=== PATIENT | female | born 1990 | race Caucasian/White ===

== ENCOUNTER 2017-01-09 17:57 | Emergency (ER) | payer SELFPAY ==
[~2017-01-09] VITALS: Ht 165.1 cm; Wt 91.0 kg
[2017-01-09 18:08] VITALS: BP 146/104
== END 2017-01-10 | disposition left against medical advice (07) ==
LOC: ER 17:57
DX: R06.02 Shortness of breath (principal); Z53.21 Procedure and treatment not carried out due to patient leaving prior to being seen by health care provider